=== PATIENT | female | born 1940 ===

== ENCOUNTER 2017-05-02 07:38 | Day surgery (SDC) | payer MEDICARE ==
[2017-04-26 09:32] VITALS: BMI 19.5
[2017-05-02] MEDS ORDERED: cefTRIAXone (Rocephin) 1 gm Inj ONE ×2 (08:43→09:12)
[2017-05-02] MEDS ORDERED: Lidocaine 2% Jelly (Uro-Jet) ONE (08:43)
[2017-05-02] MEDS ORDERED: Iohexol 240 (50 ml) ONE (08:44)
[2017-05-02] MEDS ORDERED: cefTRIAXone (Rocephin) 1 gm Inj IVPB ONE (09:11)
[2017-05-02] MEDS ORDERED: cefTRIAXone 1 gm 1 GM/100 ML BAG IVPB ONE (09:15)
[2017-05-02] MEDS ORDERED: Sodium Chloride 0.9% 1,000 ML IV SCH (10:15)
[2017-05-02] MEDS ORDERED: HYDROmorphone 0.5 mg/0.5 ml ISec IVP PRN (10:18)
[2017-05-02] MEDS ORDERED: HYDROmorphone 0.5 mg/0.5 ml ISec IVP ONE (10:19)
[2017-05-02 11:04] VITALS: RESP 20
[2017-05-02 11:36] VITALS: BP 125/60; PULSE 55; TEMP 98.2; O2SAT 98
--- NOTE | 2017-05-02 13:18 | RAD ---
PROCEDURE: Retrograde pyelogram HISTORY: LT NEPHROURETERAL STENT PLACEMENT COMPARISON: TECHNIQUE: Fluoroscopy was provided in the operating room. 17.3 seconds of fluoro time. Nine images were submitted FINDINGS: The study shows placement of a left ureteral stent. Left-sided stones are seen in the kidney and in the proximal ureter adjacent to the stent. IMPRESSION: As above
--- NOTE | 2017-05-02 13:20 | OP ---
PROCEDURE DATE: 05/02/2017 PREOPERATIVE DIAGNOSIS: Obstructing left ureteral and renal calculi. POSTOPERATIVE DIAGNOSIS: Obstructing left ureteral and renal calculi. PROCEDURES: Cystoscopy, insertion of left pigtail stent. SURGEON: Arsenio Aranda MD ANESTHESIA: LMA. DESCRIPTION OF OPERATION: After adequate LMA anesthesia was given, the patient was placed in lithotomy, prepped and draped in usual manner. A 22-Citizen [place] cystourethroscope was introduced. Urine was obtained for C and S. Inspection of the bladder showed no tumors, foreign bodies or stones. Orifices normal in appearance and location. Clear efflux from the right. I did not see efflux from the left. An open-ended catheter was placed at the opening of left ureteral orifice. A 0.035 Glidewire was advanced up the ureter and went up into the kidney. The open-ended catheter was then advanced over the Glidewire. The Glidewire was removed and replaced with a 0.035 sensor wire. At which point, the open-ended catheter was removed, leaving the sensor wire in place. Over the sensor wire, a 6-Citizen [place] 24 cm pigtail stent was advanced and properly placed. The wire was removed and stent coiled nicely in left renal pelvis and the bladder. The bladder was drained. The cystoscope was removed. The patient was awake and brought to the recovery room in good condition. Arsenio Aranda MD
== END 2017-05-02 12:15 | disposition home or self-care (01) ==
LOC: SDS 07:38
PROVIDERS: ATTEND Urology
DX: N20.2 Calculus of kidney with calculus of ureter (principal); I10 Essential (primary) hypertension
CPT/HCPCS: 52332; 74420; 87086; C1758; C1769 ×2; C2625; J0696 ×2; J1170; J2405; J7040; J7120

== ENCOUNTER 2017-07-31 08:57 | Day surgery (SDC) | payer MEDICARE ==
[2017-04-26 09:32] VITALS: BMI 19.5
[2017-07-31 09:34] LABS: BASO # 0.04 K/mm3 (0.0-2.0); BASO % 0.6 % (0.0-3.0); BLOOD UREA NITROGEN 13 mg/dL (7-21); CALCIUM 10.1 mg/dL (8.4-10.5); EOS # 0.1 (0.0-0.7); EOS % 1.3 % (1.5-5.0); GFR AFRICAN-AMERICAN > 60; GFR NON-AFRICAN AMERICAN > 60; GRAN # 4.34 (1.4-6.5); GRAN % 64.2 % (50.0-68.0); HEMOGLOBIN 13.6 g/dL (12.0-16.0); LYMPH # 1.8 (1.2-3.4); LYMPH % 27.2 % (22.0-35.0); MEAN CELL VOLUME 95.4 fl (80.0-105.0); MEAN CORPUSCULAR HEMOGLOBIN 31.6 pg (25.0-35.0); MEAN CORPUSCULAR HGB CONC 33.1 g/dl (31.0-37.0); MEAN PLATELET VOLUME 9.7 fl (7.0-11.0); MONO # 0.5 (0.1-0.6); MONO % 6.7 % (1.0-6.0); RBC 4.31 10^6/uL (3.5-6.1); RED CELL DISTRIBUTION WIDTH 11.9 % (11.5-14.5); WHITE BLOOD COUNT 6.8 10^3/ul (4.5-11.0)
[2017-07-31] MEDS ORDERED: Iohexol 240 (50 ml) ONE (11:09)
[2017-07-31] MEDS ORDERED: cefTRIAXone (Rocephin) 1 gm Inj ONE (11:09)
[2017-07-31] MEDS ORDERED: Propofol 10 mg/ml Inj (20 ML) ONE (11:32)
[2017-07-31] MEDS ORDERED: Sevoflurane - Inhalation Anesthetic Liq (250 ml) ONE (12:18)
[2017-07-31] MEDS ORDERED: HYDROmorphone 0.5 mg/0.5 ml ISec IVP PRN (13:06)
[2017-07-31] MEDS ORDERED: Lactated Ringer's 1,000 ML IV SCH (13:15)
[2017-07-31 14:21] VITALS: BP 139/72; PULSE 74; RESP 18; TEMP 98.4; O2SAT 100
--- NOTE | 2017-07-31 14:35 | RAD ---
PROCEDURE: Fluoroscopy up to 1 hour HISTORY: STENT REMOVAL/INSERT. / RETROGRADE / LASER LITHOTRIPSY /STONE REM. COMPARISON: TECHNIQUE: Fluoroscopy up to 1 hour. 116 seconds of fluoro time. Fourteen images submitted FINDINGS: Study shows left-sided hydronephrosis. There is placement of a left ureteral stent. IMPRESSION: As above
--- NOTE | 2017-08-01 08:17 | OP ---
PROCEDURE DATE: 07/31/2017 PREOPERATIVE DIAGNOSIS: Left ureteral and renal calculi. POSTOPERATIVE DIAGNOSIS: Left ureteral and renal calculi. PROCEDURES: Cystoscopy, removal of left ureteral stent, left ureteroscopy, laser lithotripsy and basket extraction of left ureteral calculi, insertion of a left ureteral stent and left retrograde pyelogram. ATTENDING SURGEON: Dr. Elbert Castro. TYPE OF ANESTHESIA: General. SPECIMENS: Ureteral calculi were sent to pathology. DRAINS: A 6 x 24 left ureteral stent. COMPLICATIONS: There were none. OPERATIVE FINDINGS: After informed consent was obtained, the patient was taken to the operating room, placed on operating table, anesthesia was administered. The patient was then placed in dorsal lithotomy position and prepped and draped in usual sterile fashion. A 22-Croatian cystoscope was then passed into the patient's bladder and a full survey inspection was performed. There was a stent noted exiting from the left ureteral orifice. The stent was mildly encrusted. There were no bladder tumors noted. There was some bullous inflammation noted around the left ureteral orifice. Right ureteral orifice appeared within normal limits. At this point, a grasping forceps was passed. The ureteral stent was grasped and withdrawn to the urethral meatus. The upper loop, however, did not open with gentle traction. At this point, a wire was passed through the stent and again there was some difficulty being had to remove the stent. At this point, the stent was pushed back into the bladder. The cystoscope was re-passed and a 5-Croatian open-ended ureteral catheter was advanced into the ureter, it was able to be guided up alongside the stent and when the open-ended ureteral catheter was in the area of the upper coil, contrast was then instilled into the system. There appeared to be a [id number] hydronephrosis of the left kidney. There was some debris noted in the renal pelvis with apparent calculus in the left renal pelvis. There were multiple densities noted alongside the stent in the ureter. After placing contrast into the system with gentle traction, the upper loop did uncoil and apparently it was stuck with some stone fragments, which were able to be freed by stenting the renal pelvis with contrast. The stent was then easily removed in its entirety and removed from the operative field. At this point, a sensor wire was obtained, it was passed through the open-ended ureteral catheter and advanced up the ureter under fluoroscopic guidance until it coiled in the upper collecting system. The open-ended ureteral catheter was then removed, the bladder was drained and the cystoscope was removed. An 8-Croatian semi-rigid ureteroscope was then obtained, it was passed under direct vision into the bladder. It was able to be guided into the left ureteral orifice and advanced proximally. Just inside the orifice, multiple stone fragments were visualized. At this point, a holmium laser fiber was obtained. It was passed through the ureteroscope and fragmentation of the larger pieces was undertaken. Stone appeared somewhat hard, fragments were able to be broken further into smaller pieces at which point the ureteroscope was able to be advanced more proximally. In the mid ureter, another larger fragment was identified. This also was broken using the holmium laser. The ureteroscope was able to be advanced under direct vision into the renal pelvis. There were 2 stones noted, one larger and one approximately 6 to 7 mm. The 6 to 7 mm stone was able to be fragmented using the laser into smaller pieces. The remaining large renal pelvic stone was difficult to contact totally with the laser. It was able to be broken into 2 or 3 pieces, which appeared to be larger than about 7 to 8 mm pieces. At this point, the ureteroscope was withdrawn under direct vision. The laser fiber was removed and the ureteroscope was withdrawn. There were multiple smaller fragments noted throughout the ureter and at this point, a stone basket was obtained. Multiple passes were then made with the ureteroscope and all of the fragments in the ureter were able to be withdrawn. On the last pass, there were no fragments noted in the ureter from the renal pelvis down to the bladder. There was a small amount of tiny gravel pieces remaining. Fragments of the stone were sent to pathology as specimen. At this point, decision was made to replace the stent as there were a few large renal pelvic fragments and plan will be to repeat a shockwave lithotripsy on these fragments, and then remove the patient's stent. At this point, the guidewire was back loaded onto the cystoscope, which was re-passed. A 6 x 24 stent was then obtained. It was passed over the wire through the cystoscope and guided into the left ureter. The stent was advanced proximally under direct and fluoroscopic guidance. When the stent was in proper position, the guidewire was removed. A coil was seen in the upper collecting system on fluoroscopy. The coil was seen in the bladder on cystoscopy. There was good efflux of urine and contrast noted through the stent into the bladder. At this point, the procedure was completed. Patient did receive intravenous antibiotics prior to start of the procedure. She was returned to the supine position and taken to the recovery room awake and in stable condition. Elbert Castro MD
== END 2017-07-31 15:00 | disposition home or self-care (01) ==
LOC: SDS 08:57
PROVIDERS: ATTEND Urology
DX: N20.0 Calculus of kidney (principal)
CPT/HCPCS: 36415; 52356; 80048; 85025; 88300; C2625; J0696; J1170; J2405; J2704; J3010; J7120 ×2; Q9966

== ENCOUNTER 2017-10-16 06:25 | Day surgery (SDC) | payer MEDICARE ==
[2017-04-26 09:32] VITALS: BMI 19.5
[2017-10-16 06:58] VITALS: RESP 18
[2017-10-16] MEDS ORDERED: cefTRIAXone (Rocephin) 1 gm Inj ONE (07:36)
[2017-10-16] MEDS ORDERED: Iohexol 240 (50 ml) ONE (07:36)
[2017-10-16] MEDS ORDERED: Gentamicin 80 mg/2mL Inj. ONE (08:10)
[2017-10-16] MEDS ORDERED: Propofol 10 mg/ml Inj (20 ML) ONE (08:10)
[2017-10-16] MEDS ORDERED: Lidocaine 2% Inj (20ml) ONE (08:12)
[2017-10-16] MEDS ORDERED: Morphine 2 mg/ml ISec IVP PRN (09:07)
[2017-10-16] MEDS ORDERED: Lactated Ringer's 500 ML IV SCH (09:15)
--- NOTE | 2017-10-16 09:41 | RAD ---
PROCEDURE: Retrograde pyelogram HISTORY: REMOVE LT STENT, LASER STONES COMPARISON: TECHNIQUE: Fluoroscopy was provided in the operating room. 83.7 seconds of fluoro time. Cumulative dose 9.16 mGy. Eight images submitted FINDINGS: The study shows removal of the left ureteral stent IMPRESSION: As above
[2017-10-16 10:26] VITALS: TEMP 97.4; O2SAT 98
[2017-10-16 11:19] VITALS: BP 107/46; PULSE 51
--- NOTE | 2017-10-16 16:23 | OP ---
PROCEDURE DATE: 10/16/2017 PREOPERATIVE DIAGNOSIS: Left renal and ureteral calculi. POSTOPERATIVE DIAGNOSIS: Left renal and ureteral calculi. PROCEDURE: Cystoscopy, removal of left ureteral stent, left ureteroscopy, laser lithotripsy of left ureteral calculus, laser lithotripsy of left renal pelvic calculus and a left retrograde pyelogram. ATTENDING SURGEON: Elbert Castro MD. ANESTHESIA: General. SPECIMENS: There were none. DRAINS: There were none. COMPLICATIONS: There were none. OPERATIVE FINDINGS: After informed consent was obtained, the patient was taken to the operating room, placed on the operating table. Anesthesia was administered. The patient was placed in the dorsal lithotomy position and prepped and draped in the usual sterile fashion. The patient received intravenous antibiotics prior to the start of the procedure. A 22-Armenian cystoscope was passed into the patient's bladder and a full survey inspection was performed. There were few small stones noted in the bladder. There were no bladder tumors. There was a stent noted exiting from the left ureteral orifice. The right ureteral orifice appeared within normal limits. The stent was mildly calcified and at this point, a grasping forceps was passed and the end of the stent was grasped. On fluoroscopy, the stent was well visualized. There appeared to be a stone near the upper limb and one in the upper ureter. With gentle traction on the stent, it was able to be removed through the urethral meatus. The stent was then grasped and withdrawn during fluoroscopic vision. The upper ureteral stone was able to be manipulated into the mid ureter by removing the stent. The renal pelvic stone remained in place. The stent was removed in its entirety and inspected. It was whole. It was mildly calcified and intact. It was removed from the operative field. At this point, the cystoscope was re-passed. The left ureteral orifice was able to be identified. There were some moderate bullous edema and open-ended ureteral catheter was advanced through the cystoscope and able to be advanced into the left ureteral orifice. A sensor wire was then obtained. It was passed through the open-ended ureteral catheter and guided up the ureter on fluoroscopic guidance. The wire was noted to contact the stone, but it was able to be manipulated past the stone and advanced into the kidney and coiled in the upper collecting system. The bladder was then drained. The cystoscope was removed and a 7-Armenian long ureteroscope was obtained. The ureteroscope was then passed into the bladder and guided into the left ureteral orifice under direct guidance. The ureteroscope was able to be easily advanced into the area of the mid ureter. There were few small tiny pieces of stone noted in the lower ureter none larger than 1 mm in size. In the upper ureter, the stone was able to be directly visualized. At this point, a holmium laser fiber was obtained and on a dusting setting the stone was able to be dusted under direct vision into tiny fragments. The ureteroscope was then able to be advanced proximally under direct vision without difficulty into the renal pelvis. The large renal pelvic stone was able to be well visualized and again using the laser on a dusting setting, the stone was able to be fragmented into small pieces. The bulk of the stone was able to be completely fragmented. There was one smaller piece, which appeared to fall into a dependent position which could not be further fragmented. At this point, a final inspection was made of the renal pelvis and kidney, no other large stones could be visualized and at this point, the ureteroscope was withdrawn under direct vision. It was removed without difficulty. There were no large fragments noted in either the renal pelvis or the ureter and the ureteroscope was then withdrawn. The cystoscope was then re-passed while back loading the guidewire and the open-ended ureteral catheter was then advanced into the ureter. The guidewire was then removed and contrast was then instilled into the system. There appeared to be some evidence of ureteral edema which had been noted on ureteroscopy. There were no large fixed filling defects consistent with any large calculi. The open-ended ureteral catheter was then withdrawn. Contrast was then noted to be draining from the kidney down the ureter and into the bladder without any evidence of obstruction. At this point, the procedure was completed, the bladder was drained. The cystoscope was removed. The patient was returned to the supine position and taken to the recovery room awake in stable condition. Elbert Castro MD
== END 2017-10-16 11:55 | disposition home or self-care (01) ==
LOC: SDS 06:25
PROVIDERS: ATTEND Urology
DX: N20.0 Calculus of kidney (principal); N20.1 Calculus of ureter; I10 Essential (primary) hypertension
CPT/HCPCS: 52356; 74420; C1758; C1769; J0696; J1580; J2270; J2405; J2704; J3010; J7120 ×2; Q9966